=== PATIENT | male | born 1945 | race Caucasian/White ===

== ENCOUNTER 2017-06-20 06:08 | Emergency (ER) | payer MEDICARE ==
[~2017-06-20] VITALS: Ht 185.4 cm; Wt 79.5 kg
[2017-06-20] MEDS ORDERED: SULF1TAB49 PO (06:54)
[2017-06-20] MEDS ORDERED: CEPH500C5 PO (06:54)
[2017-06-20] MEDS ORDERED: CefTRIAXone 1000mg IM Kit (w/lidocaine diluent) IM ONE (06:55)
[2017-06-20 07:12] VITALS: BP 182/92
== END 2017-06-20 07:13 | disposition home or self-care (01) ==
LOC: ER 06:09
DX: L03.113 Cellulitis of right upper limb (principal)
CPT/HCPCS: 96372; 99283; J0696

== ENCOUNTER 2021-11-13 10:32 | Outpatient (CLI) | payer MEDICARE | END 2021-11-13 23:59 | disposition home or self-care (01) | LOC: VAS 10:32 | PROVIDERS: ATTEND Family Medicine | DX: M79.662 Pain in left lower leg (principal) | CPT/HCPCS: 93971 ==